=== PATIENT | female | born 1985 | race Caucasian/White ===

== ENCOUNTER 2021-02-28 21:32 | Observation (INO) ==
[2021-02-28] MEDS ORDERED: IOPAMIDOL 100 ML BOTTLE IV ONE (21:33)
[2021-02-28] MEDS ORDERED: 0.9 % SODIUM CHLORIDE 1,000 ML IV ONE (23:05)
[2021-02-28] MEDS ORDERED: ONDANSETRON 4 MG/2 ML VIAL IV ONE (23:06)
--- NOTE | 2021-02-28 23:08 | Emergency Department Note ---
Nausea/Vomiting/Diarrhea HPI General Chief complaint: Nausea/Vomiting/Diarrhea Stated complaint: Nausea/Vomiting Time Seen by Provider: 02/28/21 22:19 Source: patient Mode of arrival: ambulatory Limitations: no limitations History of Present Illness HPI Narrative: Narrative: E3 for evaluation of nausea vomiting and diarrhea. The patient has had a history of gastric sleeve. She states that symptoms started this afternoon breakfast. She denies any fever. She does report diffuse abdominal cramping. She also reports nausea and persistent vomiting with poor oral intake. She denies any rectal bleeding or melanotic stool. No hematemesis. She describes the pain is constant and diffuse. There are no exacerbating or alleviating factors. Related Data Home Medications Medication Instructions Recorded Confirmed multivitamin 1 tab PO QAM 01/06/20 01/12/21 Previous Rx's Medication Instructions Recorded zolpidem 5 mg tablet See Rx Instructions .ROUTE 12/23/19 .COMPLEX #30 unknown measurement unit code: tablet cyanocobalamin (vitamin B-12) 1,000 mcg IM QMONTH #3 each 09/07/20 1,000 mcg/mL injection kit potassium chloride 10 mEq See Rx Instructions .ROUTE 11/14/20 tablet,extended release .COMPLEX #90 tab atomoxetine 25 mg capsule 50 mg PO QAM #60 cap 01/12/21 tramadol 50 mg tablet See Rx Instructions PO .COMPLEX 01/12/21 PRN #42 tab levothyroxine 88 mcg tablet See Rx Instructions .ROUTE 02/02/21 .COMPLEX #30 tablet norelgestromin 150 mcg-e.estradiol See Rx Instructions .ROUTE 02/15/21 35 mcg/24 hr weekly transderm patch .COMPLEX #3 ea Allergies Allergy/AdvReac Type Severity Reaction Status Date / Time morphine AdvReac Difficulty Verified 01/12/21 12:59 Breathing Review of Systems ROS ROS Narrative: Narrative: All systems ED: reviewed and negative except as stated. [facility] Narrative Patient History Narrative: Narrative: Medical/Surgical/Family History All Active Problems (Updated 03/01/21 @ 01:37 by Federico Cuadra MD) Gastric bypass status for obesity (Acute) Poor sleep (Acute) Right shoulder pain (Chronic) Migraine with acute onset aura (Acute) Nausea and vomiting (Acute) Hypothyroidism, acquired (Chronic) H/O shoulder surgery (Acute) Fatigue (Acute) Atypical mole (Acute) ADHD (Acute) Change in skin mole (Acute) Family hx of melanoma (Acute) Acute left flank pain (Acute) Joint pain in both hands (Acute) High risk medications (not anticoagulants) long-term use (Acute) Vomiting (Acute) Bowel obstruction (Acute) Medical History ADHD Ritalin Anemia Anxiety Arthritis Asthma Atypical mole ODERATE TO SEVERE CYTOLOGIC ATYPIA per pathology Change in skin mole Chronic musculoskeletal pain Daytime sleepiness Depression Family hx of melanoma Fatigue B12 injections Gestational diabetes High cholesterol High risk medications (not anticoagulants) long-term use Tramadol Hypothyroidism Hypothyroidism, acquired Insomnia Joint pain Joint pain in both hands Migraine OTC and Imitrex Pancreatitis Polycystic ovarian disease Vitamin D deficiency Surgical History Gastric bypass status for obesity H/O shoulder surgery 03/25/2020 Right - Dr Bautista History of laminectomy Dr Riley Hx of appendectomy Hx of cholecystectomy Family History Mother Arthritis Diabetes mellitus Migraines Brother Atypical migraine Arthritis Skin cancer Sister Atypical migraine Family/Other Diabetes mellitus HTN (hypertension) Father CAD (coronary artery disease) Social History Smoking Status: Former smoker Alcohol Intake Frequency: 0-2 drinks per day Exam Narrative Narrative: Narrative: General Limitations: no limitations General appearance: Present alert and in no apparent distress Head Head: Present atraumatic, normocephalic and normal inspection Eye Eye: Present normal appearance and EOMI; Absent conjunctival injection ENT ENT: Present normal exam and mucous membranes moist Neck Neck: Present normal inspection and trachea midline Respiratory Respiratory: Present normal lung sounds bilaterally; Absent respiratory distress Cardiovascular Cardiovascular: Present regular rate, normal rhythm and normal heart sounds Adbominal Abdominal: Present soft; Absent distention, tenderness, guarding and rebound Extremities Extremities: Present normal inspection; Absent tenderness Back Back: Present normal inspection; Absent tenderness Neurological Neurological: Present alert, oriented X3 and CN II-XII intact; Absent motor sensory deficit Psychiatric Psychiatric: Present normal affect and normal mood Skin Skin: Present warm (WNL) and dry; Absent rash Course Vital Signs Vital signs: Vital Signs Temperature 98.7 F 02/28/21 21:32 Pulse Rate 113 H 02/28/21 21:32 Respiratory Rate 18 02/28/21 21:32 Blood Pressure 126/78 02/28/21 21:32 Pulse Oximetry (%) 97 02/28/21 21:32 Temperature 98.7 F 02/28/21 21:32 Pulse Rate 104 H 03/01/21 01:16 Respiratory Rate 18 02/28/21 21:32 Blood Pressure 110/60 03/01/21 01:16 Pulse Oximetry (%) 98 03/01/21 01:16 [facility] MDM Narrative Medical decision making narrative: Narrative: The patient presents for evaluation of abdominal pain with nausea and vomiting. On exam the patient has a nonsurgical abdomen. Labs were obtained and showed no evidence of leukocytosis. No evidence of transaminitis or pancreatitis. The patient does have a history of gastric sleeve and I was concerned about complications associated with this. CT scan of the abdomen pelvis with contrast was obtained. There is noted to be a regional area of mild abnormal distention of the jejunum with air-fluid levels which may represent obstruction. The patient initially was treated with IV Zofran as well as normal saline. She was feeling better however when she got up to use the commode she started to feel nausea and her symptoms returned. I discussed the case with the on-call surgeon, Dr. Robles. We will admit the patient for further evaluation and treatment to observation status. Lab Data Lab results reviewed: Yes I reviewed the patient's lab results. Result diagrams: 02/28/21 23:15 02/28/21 23:15 Labs: Lab Results 02/28/21 02/28/21 Range/Units 23:15 23:15 WBC 10.8 (4.5-11.0) K/mcL RBC 4.49 (4.00-5.20) M/mcL Hgb 13.6 (12.0-15.0) g/dL Hct 41.2 (36.0-48.0) % MCV 91.8 (80.0-100.0) fL MCH 30.3 (26.0-34.0) pg MCHC 33.0 (31.0-36.0) g/dL RDW 13.8 (11.5-14.5) % Plt Count 231 (140-440) K/mcL MPV 10.2 (7.4-10.4) fL Neut % (Auto) 93.8 H (38.0-78.0) % Lymph % (Auto) 1.9 L (15.0-49.0) % [place] % (Auto) 3.3 (1.0-12.0) % Eos % (Auto) 0.5 (0.0-7.0) % Baso % (Auto) 0.5 (0.0-2.0) % Lymph # (Auto) 0.21 L (1.50-4.80) K/mcL [place] # (Auto) 0.36 (0.10-0.90) K/mcL Eos # (Auto) 0.05 (0.00-0.70) K/mcL Baso # (Auto) 0.05 (0.00-0.20) K/mcL Absolute Neutrophils 10.10 H (1.80-8.00) K/mcL Sodium 136 (133-145) mmol/L Potassium 3.9 (3.3-5.1) mmol/L Chloride 104 (96-108) mmol/L Carbon Dioxide 23 (22-30) mmol/L Anion Gap 9.0 (8.0-16.0) BUN 14 (6-20) mg/dL Creatinine 0.5 L (0.6-1.1) mg/dL GFR Calculation 124 Glucose 100 (70-105) mg/dL Calcium 8.7 (8.6-10.4) mg/dL Total Bilirubin 0.8 (0.1-1.0) mg/dL AST 14 (<32) U/L ALT 8 (<40) U/L Alkaline Phosphatase 62 (39-117) U/L Total Protein 6.4 (5.9-8.4) gm/dL Albumin 3.9 (3.2-5.2) gm/dL Globulin 2.5 (2.2-3.7) gm/dL Albumin/Globulin Ratio 1.6 (1.0-2.3) Lipase 11 (7-60) U/L ED POC Tests ED POC Tests: HCG POC Results Negative Radiology Data Radiology results reviewed: Yes I reviewed the patient's radiology results. Discharge Plan Patient/Caregiver Discharge Instructions Pt seen by FUNERAL DRIVER/PA only: No Clinical Impression: Vomiting, Bowel obstruction Patient Disposition: Xfer As Outpt/Obs ([facility] Follow up with: Melanie Worthington ARNP [Primary Care Provider] - Prescriptions: No Action multivitamin [Daily Multi-Vitamin] Tablet 1 tab PO QAM RF: 0 zolpidem 5 mg tablet See Rx Instructions .ROUTE .COMPLEX Qty: 30 RF: 1 potassium chloride 10 mEq tablet extended release See Rx Instructions .ROUTE .COMPLEX Qty: 90 RF: 0 levothyroxine 88 mcg tablet See Rx Instructions .ROUTE .COMPLEX Qty: 30 RF: 11 Xulane 150-35 mcg/24 hr patch weekly See Rx Instructions .ROUTE .COMPLEX Qty: 3 RF: 3 cyanocobalamin (vitamin B-12) 1,000 mcg/mL kit 1,000 mcg IM QMONTH Qty: 3 RF: 3 atomoxetine [Strattera] 25 mg capsule 50 mg PO QAM Qty: 60 RF: 6 tramadol 50 mg tablet See Rx Instructions PO .COMPLEX PRN (Reason: pain) Qty: 42 RF: 3
[2021-03-01 00:04] LABS: Basophils # (Auto) 0.05 K/mcL (0.00-0.20); Basophils % (Auto) 0.5 % (0.0-2.0); Eosinophils # (Auto) 0.05 K/mcL (0.00-0.70); Eosinophils % (Auto) 0.5 % (0.0-7.0); Hematocrit 41.2 % (36.0-48.0); Hemoglobin 13.6 g/dL (12.0-15.0); Lymphocytes # (Auto) 0.21 K/mcL (1.50-4.80); Lymphocytes % (Auto) 1.9 % (15.0-49.0); Mean Cell Volume 91.8 fL (80.0-100.0); Mean Platelet Volume 10.2 fL (7.4-10.4); Monocytes # (Auto) 0.36 K/mcL (0.10-0.90); Monocytes % (Auto) 3.3 % (1.0-12.0); Neutrophils % (Auto) 93.8 % (38.0-78.0); Platelet Count 231 K/mcL (140-440); RBC 4.49 M/mcL (4.00-5.20); Red Cell Distribution Width 13.8 % (11.5-14.5); WBC 10.8 K/mcL (4.5-11.0)
[2021-03-01 00:22] LABS: ALT/SGPT 8 U/L (<40); AST/SGOT 14 U/L (<32); Albumin 3.9 gm/dL (3.2-5.2); Albumin/Globulin Ratio 1.6 (1.0-2.3); Alkaline Phosphatase 62 U/L (39-117); Bilirubin,Total 0.8 mg/dL (0.1-1.0); Blood Urea Nitrogen 14 mg/dL (6-20); Calcium 8.7 mg/dL (8.6-10.4); Carbon Dioxide 23 mmol/L (22-30); Chloride 104 mmol/L (96-108); Globulin 2.5 gm/dL (2.2-3.7); Glomerular Filtration Rate 124; Glucose 100 mg/dL (70-105)
[2021-03-01] MEDS ORDERED: ONDANSETRON 4 MG/2 ML VIAL IV ONE (01:49)
--- NOTE | 2021-03-01 02:17 | Cat Scan Report ---
CLINICAL INFORMATION: Abdominal pain and vomiting COMPARISON: Abdomen and pelvic CT 08/17/2008 TECHNIQUE: Following enteric contrast, 80 cc of Isovue-370 were injected intravenously, and 60 seconds later, 0.625 mm helical slices were obtained from the mid heart through the subtrochanteric regions. Following reconstruction, 2.5 mm sagittal, coronal and axial reformatted images were processed and reviewed at bone, lung and soft tissue windows. Five minutes later, 0.625 mm helical slices were obtained from the mid heart through the kidneys and viewed at soft tissue windows.The exam was performed using radiation dose optimization techniques including, but not limited to, automated exposure control, adjustment of the mA and/or kV according to patient size and use of iterative reconstruction technique. FINDINGS: The lung bases show no abnormality. There are no effusions. Visualized heart is normal. Abdominal images show cholecystectomy changes. The intrahepatic and common bile ducts are normal caliber. The liver, both kidneys, adrenal glands, spleen, pancreas and aorta including aortic branches are normal in size, configuration and attenuation without focal lesion. There is no free air, free fluid or adenopathy. Pelvic images show slightly retroverted uterus which is normal in size: 8 x 3.5 cm. Focal mucosal thickening in the cervical region noted - 11 mm. 18 mm cyst on the left ovary appreciated. Right ovary is normal. A small amount of physiologic free fluid. Gastric sleeve noted. The remaining stomach small and large bowel are grossly normal. Appendectomy changes acknowledged. Bone windows show moderate broad L4-5 disc protrusion left-sided asymmetry and bilateral facet arthropathy. This results in moderate central canal and left lateral recess narrowing with impingement of the descending left L5 nerve root. There is mild IV foraminal narrowing. At L5-S1, mild broad disc protrusion noted. No focal osseous lesion. IMPRESSION: Focal thickening of the cervical mucosa - 11 mm. Please correlate with pelvic exam and Pap smear to evaluate for hyperplasia or cervical carcinoma 1.7 cm simple cyst left ovary. Lower lumbar spine degeneration - please see above Interpreted and Authenticated by: David Rodrigues 03/01/21
[2021-03-01] MEDS: 0.9 % SODIUM CHLORIDE 1,000 ML IV SCH ×2 (02:33→13:39)
[2021-03-01] MEDS ORDERED: ONDANSETRON 4 MG/2 ML VIAL ONE (02:59)
[2021-03-01] MEDS ORDERED: AMIODARONE 150 MG in DEXTROSE 5% IN WATER 50 ML IV ONE (05:36)
[2021-03-01] MEDS ORDERED: AMIODARONE 360 MG in PREMIX 1 BAG IV SCH (05:45)
--- NOTE | 2021-03-01 08:04 | General Surg History&Physical ---
HPI History of Present Illness Patient information: Note initiated : 03/01/21 at 8:00 am Service Date, if different from initiated Date: 03-01-21 Patient: Estephania Sams a 36 y/o F admitted on 03/01/21 for Nausea/Vomiting. Chief Complaint: Abdominal pain, nausea and emesis History of present illness: Ms. Sams is a 36 year old F with significant past recio rgical history for a gastric sleeve, cholecystectomy, remote appendectomy who presents with 1 day history of nausea and emesis along with crampy abdominal pain. She reports that the pain had gradually got worse over the day. She is never experienced any sort of symptoms like this before. She did have some flatus and diarrhea throughout the day. She was seen and evaluated by the emergency room last night given a diagnosis of partial small bowel obstruction and was admitted to [place]. Upon exam this morning patient reports that her abdominal pain is completely resolved, she is having some fevers and chills. Her nausea feels better. Review of Systems Review of systems: All systems are reviewed, negative other than above PFSH PFSH All Active Problems Gastric bypass status for obesity (Acute) Poor sleep (Acute) Right shoulder pain (Chronic) Migraine with acute onset aura (Acute) Nausea and vomiting (Acute) Hypothyroidism, acquired (Chronic) H/O shoulder surgery (Acute) Fatigue (Acute) Atypical mole (Acute) ADHD (Acute) Change in skin mole (Acute) Family hx of melanoma (Acute) Acute left flank pain (Acute) Joint pain in both hands (Acute) High risk medications (not anticoagulants) long-term use (Acute) Vomiting (Acute) Bowel obstruction (Acute) Medical History ADHD Ritalin Anemia Anxiety Arthritis Asthma Atypical mole ODERATE TO SEVERE CYTOLOGIC ATYPIA per pathology Change in skin mole Chronic musculoskeletal pain Daytime sleepiness Depression Family hx of melanoma Fatigue B12 injections Gestational diabetes High cholesterol High risk medications (not anticoagulants) long-term use Tramadol Hypothyroidism Hypothyroidism, acquired Insomnia Joint pain Joint pain in both hands Migraine OTC and Imitrex Pancreatitis Polycystic ovarian disease Vitamin D deficiency Surgical History Gastric bypass status for obesity H/O shoulder surgery 03/25/2020 Right - Dr Bautista History of laminectomy Dr Riley Hx of appendectomy Hx of cholecystectomy Family History Mother Arthritis Diabetes mellitus Migraines Brother Atypical migraine Arthritis Skin cancer Sister Atypical migraine Family/Other Diabetes mellitus HTN (hypertension) Father CAD (coronary artery disease) Social History household members: significant other and family marital status: other details: Fiance' occupational status: 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 weight has: decreased > 10 lbs smoking status: Former smoker quit date: 06/26/19 alcohol intake frequency: 0-2 drinks per day MEDS/ALLERGIES Home Medications and Allergies Home Medications Medication Instructions Recorded Confirmed Type multivitamin 1 tab PO QAM 01/06/20 03/01/21 History cyanocobalamin (vitamin B-12) 1,000 mcg IM QMONTH #3 each 09/07/20 03/01/21 Rx 1,000 mcg/mL injection kit norelgestromin 150 mcg-e.estradiol See Rx Instructions .ROUTE 02/15/21 03/01/21 Rx 35 mcg/24 hr weekly transderm patch .COMPLEX #3 ea atomoxetine [Strattera] 25 mg PO 0800,1200 03/01/21 03/01/21 History levothyroxine 88 mcg PO DAILY 03/01/21 03/01/21 History tramadol 50 mg PO QIDP PRN 03/01/21 03/01/21 History zolpidem 5 mg PO HSP PRN 03/01/21 03/01/21 History Allergies Allergy/AdvReac Type Severity Reaction Status Date / Time morphine AdvReac Intermediate Difficulty Verified 03/01/21 03:00 Breathing Physical Examination Vital Signs Vital signs: Temp Pulse Resp BP Pulse Ox 99.5 F H 97 H 20 100/62 97 03/01/21 07:17 03/01/21 07:17 03/01/21 07:17 03/01/21 07:17 03/01/21 07:17 General physical appearance General physical exam: well developed, well nourished and no distress Eyes Eye exam: PERRL and normal ocular movement ENT ENT exam: normal pinna, normal nares, normal mucosa, no hearing loss and no congestion Head Head exam IM: Present atraumatic and normocephalic Neck Neck exam: no masses, no bruits, trachea midline, no lymphadenopathy and no venous distension Cardiovascular Cardiovascular exam IM: Present normal rate and rhythm Respiratory Respiratory exam: normal expansion, normal respiratory effort, clear to percussion and clear to auscultation Abdomen Abdomen: Present soft, non tender, bowel sounds and surgical scars; Absent masses, guarding, rebound and distended Hernia: Present none Genitourinary Genitourinary (Female): Present normal external genitalia Rectum Rectum: Present normal sphincter tone, no hemorrhoids, no tenderness, no masses and no bleeding Integumentary Integumentary: Present no rash, no growths and no abnormal pigmentation Neurologic Neurologic: Present normal coordination and normal sensation Musculoskeletal Musculoskeletal: Present normal gait and normal posture Psychiatric Psychiatric: Present oriented to time, oriented to person, oriented to place, speech is normal and memory intact Results Labs Result diagrams: 02/28/21 23:15 02/28/21 23:15 Labs: Abnormal lab results 02/28/21 02/28/21 Range/Units 23:15 23:15 Neut % (Auto) 93.8 H (38.0-78.0) % Lymph % (Auto) 1.9 L (15.0-49.0) % Lymph # (Auto) 0.21 L (1.50-4.80) K/mcL Absolute Neutrophils 10.10 H (1.80-8.00) K/mcL Creatinine 0.5 L (0.6-1.1) mg/dL Diabetes panel 02/28/21 Range/Units 23:15 Sodium 136 (133-145) mmol/L Potassium 3.9 (3.3-5.1) mmol/L Chloride 104 (96-108) mmol/L Carbon Dioxide 23 (22-30) mmol/L BUN 14 (6-20) mg/dL Creatinine 0.5 L (0.6-1.1) mg/dL Glucose 100 (70-105) mg/dL Calcium 8.7 (8.6-10.4) mg/dL AST 14 (<32) U/L ALT 8 (<40) U/L Alkaline Phosphatase 62 (39-117) U/L Total Protein 6.4 (5.9-8.4) gm/dL Albumin 3.9 (3.2-5.2) gm/dL Calcium panel 06/29/21 Range/Units 23:15 Calcium 8.7 (8.6-10.4) mg/dL Albumin 3.9 (3.2-5.2) gm/dL Pituitary panel 02/28/21 Range/Units 23:15 Sodium 136 (133-145) mmol/L Potassium 3.9 (3.3-5.1) mmol/L Chloride 104 (96-108) mmol/L Carbon Dioxide 23 (22-30) mmol/L BUN 14 (6-20) mg/dL Creatinine 0.5 L (0.6-1.1) mg/dL Glucose 100 (70-105) mg/dL Calcium 8.7 (8.6-10.4) mg/dL Adrenal panel 02/28/21 Range/Units 23:15 Sodium 136 (133-145) mmol/L Potassium 3.9 (3.3-5.1) mmol/L Chloride 104 (96-108) mmol/L Carbon Dioxide 23 (22-30) mmol/L BUN 14 (6-20) mg/dL Creatinine 0.5 L (0.6-1.1) mg/dL Glucose 100 (70-105) mg/dL Calcium 8.7 (8.6-10.4) mg/dL Total Bilirubin 0.8 (0.1-1.0) mg/dL AST 14 (<32) U/L ALT 8 (<40) U/L Alkaline Phosphatase 62 (39-117) U/L Total Protein 6.4 (5.9-8.4) gm/dL Albumin 3.9 (3.2-5.2) gm/dL All other labs normal. A/P Narrative A/P Narrative: This is a pleasant 36-year-old female who presents with crampy abdominal pain, nausea and emesis. She has no leukocytosis, she has no lab abnormalities, CT scan is read as negative for intra-abdominal pathology other than some possible cervical thickening. There is no evidence of small bowel obstruction on labs, CT scan nor on physical exam. Diagnosis most likely gastroenteritis. I will advance to clear diet this morning, if she tolerates without return of crampy abdominal pain can be discharged home later today. I will discussed with her the need to follow-up with [facility] PRO[facility] CONSULTANT to make sure she is current on her Pap smears. Time Spent With Patient Time: Total time spent is greater than 50% in coordination of care (as documented) at patient's floor/unit and/or counseling patient:
--- NOTE | 2021-03-01 13:18 | Discharge Summary ---
Discharge Provider Provider Patient information: Note initiated : 03/01/21 at 1:16 pm Service Date, if different from initiated Date: [] Patient: Estephania Sams 36 y/o F admitted on 03/01/21 for Nausea/Vomiting. Chief Complaint: [] Date of admission: 03/01/21 02:15 Discharge date: 03/01/21 Primary care physician: JOSE MIGUEL Avila Consults: 03/01/21 Consult to Physician [CONS] Stat Comment: Consulting Provider: Abran Robles Reason For Exam: Physician to Consult COURSE Hospital Course Hospital course: Patient admitted overnight from the emergency room with a diagnosis of a partial small bowel obstruction, CT scan showed no evidence of bowel obstruction. Patient's diet was advanced which she tolerated without difficulty. Most likely patient presented with enteritis and is able to tolerate a diet at this time. Discharge diagnosis: Enteritis Time Spent with Patient Time attestation: Total time spent providing and/or coordinating discharge services: Physical Examination Vital Signs Vital signs: Temp Pulse Resp BP Pulse Ox 98.3 F 77 20 101/63 98 03/01/21 12:00 03/01/21 12:00 03/01/21 12:00 03/01/21 12:00 03/01/21 12:00 Discharge Plan Patient/Caregiver Discharge Instructions Activity: increase activity as tolerated Diet: Regular Diet Prescriptions: Continued multivitamin [Daily Multi-Vitamin] Tablet 1 tab PO QAM RF: 0 Xulane 150-35 mcg/24 hr patch weekly See Rx Instructions .ROUTE .COMPLEX Qty: 3 RF: 3 cyanocobalamin (vitamin B-12) 1,000 mcg/mL kit 1,000 mcg IM QMONTH Qty: 3 RF: 3 zolpidem 5 mg tablet 5 mg PO HSP PRN (Reason: Insomnia) RF: 0 tramadol 50 mg tablet 50 mg PO QIDP PRN (Reason: pain) RF: 0 levothyroxine 88 mcg tablet 88 mcg PO DAILY RF: 0 atomoxetine [Strattera] 25 mg capsule 25 mg PO 0800,1200 RF: 0 Follow Up Plan Follow up with: Melanie Worthington ARNP [Primary Care Provider] - Patient Disposition: Home, Self-Care Discharge Orders: Discharge Order (Routine); Ordered 03/01/21 Ordered By: Abran Robles Pending Pending Pending: Diet Clear Liquid Diet Start SatMar 01 0805 Sodium Chloride (Sodium Chloride 0.9%) 1,000 mls @ 100 mls/hr IV .Q10H KIMBERLY Last Admin: 03/01/21 02:33 Dose: 100 mls/hr Documented by: ALBA Shift Summary 03/01/21 05:00 Shift Summary by Solange Worthy Pt admitted for abd pain & SBO. HX of GI band and wt loss, but has not had this issue before. Up w/SBA. Has not voided since admit around 0200. MIV running, but says she hasn't had anything to eat/drink all day Saturday. Pain much better than upon admit, but still has nausea. Dr Robles has not yet seen her. Initialized on 03/01/21 05:00 - END OF NOTE
== END 2021-03-01 15:44 | disposition home or self-care (01) ==
LOC: MEDSUR 21:32 → ED 21:32
PROVIDERS: ADMIT Surgery; ATTEND Surgery